=== PATIENT | female | born 1965 | race Caucasian/White ===

== ENCOUNTER 2018-11-29 14:40 | Emergency (ER) | payer MEDICAID ==
[~2018-11-29] VITALS: Ht 160 cm; Wt 56.8 kg
[2018-11-29 14:41] VITALS: BP 152/88
[2018-11-29] MEDS ORDERED: METO25XL PO (14:47)
[2018-11-29] MEDS ORDERED: MULT1TAB61 PO (14:47)
[2018-11-29] MEDS ORDERED: LISI-660 PO (14:47)
[2018-11-29 16:11] LABS: APPEARANCE,URINE CLEAR (CLEAR); BILIRUBIN,URINE NEGATIVE (NEGATIVE); GLUCOSE, URINE (UA) NEGATIVE (NEGATIVE); KETONES,URINE NEGATIVE (NEGATIVE); LEUKOCYTE ESTERASE ,URINE NEGATIVE (NEGATIVE); NITRATE,URINE NEGATIVE (NEGATIVE); PROTEIN,URINE NEGATIVE (NEGATIVE); UROBILINOGEN,URINE 0.2 mg/dL (<=1.0)
[2018-11-29 16:20] LABS: OCCULT BLOOD,URINE MODERATE (NEGATIVE)
[2018-11-29 16:21] LABS: BACTERIA,URINE None Seen /HPF (None Seen); WBC,URINE None Seen /HPF (0-5)
== END 2018-11-29 16:48 | disposition home or self-care (01) ==
LOC: EMS 14:42
DX: N89.8 Other specified noninflammatory disorders of vagina (principal); F41.9 Anxiety disorder, unspecified; I10 Essential (primary) hypertension; F17.210 Nicotine dependence, cigarettes, uncomplicated; Z79.899 Other long term (current) drug therapy